=== PATIENT | female | born 1995 | race Caucasian/White ===

== ENCOUNTER 2017-01-30 06:16 | Emergency (ER) | payer BC ==
[2017-01-30] MEDS ORDERED: TETRACAINE 0.5% OPHTH SOLN 2 ML BOTTLE ONE ×2 (06:25→07:20)
[2017-01-30 06:40] VITALS: BP 119/67; PULSE 88; TEMP 97.5; BMI 25.8
--- NOTE | 2017-01-30 07:16 | PDOC ---
History of Present Illness - General History Source: Patient Exam Limitations: No Limitations - History of Present Illness Initial Comments: 01/30/17 07:35 The patient is a 21-year-old woman, accompanied by her mother, with no past medical history who presents to the emergency department via walk-in with complaints of bilateral eye pain. No trauma. Patient states that she had her contact lenses on all day. She proceeded to take them out at the end of the day yesterday. This morning, she woke up and was unable to open both of her eyes, secondary to pain. She states that this has happened to her in the past, but only on the right eye. She was evaluated by her Jetting Machine Operator, who stated, at the time, that she accidentally scratched her cornea. No visual changes, headache, lightheadedness, dizziness, nausea, vomiting, fever, chills. No other complaints. Allergies: No Known Drug Allergies Past Surgical History: None reported Social History: No tobacco, EtOH and recreational drug use. <Mia Oakley - Last Filed: 01/30/17 07:49> <Viry Parsons - Last Filed: 01/30/17 07:55> - General Chief Complaint: Eye Problem Stated Complaint: EYE PAIN Time Seen by Provider: 01/30/17 07:14 Past History <Mia Oakley - Last Filed: 01/30/17 07:49> - Psycho/Social/Smoking Cessation Hx Suicidal Ideation: No Smoking History: Never smoked Have you smoked in the past 12 months: No Information on smoking cessation initiated: No Hx Alcohol Use: No Drug/Substance Use Hx: No <Viry Parsons - Last Filed: 01/30/17 07:55> - Past Medical History Allergies/Adverse Reactions: Allergies Allergy/AdvReac Type Severity Reaction Status Date / Time No Known Allergies Allergy Verified 01/30/17 06:28 Home Medications: Ambulatory Orders Cyclopentolate 1% Eye Drops [Cyclogyl 1% Eye Drops -] 1 drop OU TID PRN #1 dropsbtl 01/30/17 Ibuprofen [Motrin -] 600 mg PO TID #21 tablet 01/30/17 Moxifloxacin HCl [Vigamox 0.5% Eye Drops -] 1 - 2 drop OU ASDIR #1 bottle Oxycodone HCl/Acetaminophen [Percocet 5-325 mg Tablet] 1 tab PO Q6H PRN #12 tablet MDD 4 tabs 01/30/17 Review of Systems - Review of Systems Able to Perform ROS?: Yes Comments:: 01/30/17 07:35 GENERAL/CONSTITUTIONAL: No fever or chills. No weakness. HEAD, EYES, EARS, NOSE AND THROAT: Yes: Bilateral Eye Pain. No change in vision. No ear pain or discharge. No sore throat. NEUROLOGIC: No headache, vertigo, loss of consciousness, or change in strength/ sensation. <Mia Oakley - Last Filed: 01/30/17 07:49> *Physical Exam - Vital Signs Last Vital Signs Temp Pulse Resp BP Pulse Ox 97.5 F L 88 20 119/67 99 01/30/17 06:28 01/30/17 06:28 01/30/17 06:28 01/30/17 06:28 01/30/17 06:28 - Physical Exam Comments: 01/30/17 07:35 GENERAL: Awake, alert, and fully oriented, in no acute distress HEAD: No signs of trauma EYES: PERRLA, EOMI, sclera anicteric, conjunctiva clear ENT: Auricles normal inspection, hearing grossly normal, nares patent, oropharynx clear without exudates. Moist mucosa NECK: Normal ROM, supple, no lymphadenopathy, JVD, or masses LUNGS: Breath sounds equal, clear to auscultation bilaterally. No wheezes, and no crackles HEART: Regular rate and rhythm, normal S1 and S2, no murmurs, rubs or gallops ABDOMEN: Soft, nontender, normoactive bowel sounds. No guarding, no rebound. No masses EXTREMITIES: Normal range of motion, no edema. No clubbing or cyanosis. No cords, erythema, or tenderness NEUROLOGICAL: Cranial nerves II through XII grossly intact. Normal speech, normal gait <Mia Oakley - Last Filed: 01/30/17 07:49> - Vital Signs Last Vital Signs Temp Pulse Resp BP Pulse Ox 97.5 F L 88 20 119/67 99 01/30/17 06:28 01/30/17 06:28 01/30/17 06:28 01/30/17 06:28 01/30/17 06:28 - Physical Exam Comments: GENERAL: Awake, alert, and fully oriented, in no acute distress HEAD: No signs of trauma EYES: Mild conjunctival injection B/L. PERRLA, EOMI, sclera anicteric, conjunctiva clear. Fluorescein stain with slight abnormal uptake to mid-cornea. ENT: Auricles normal inspection, hearing grossly normal, nares patent, oropharynx clear without exudates. Moist mucosa SKIN: Warm, Dry, normal turgor, no rashes or lesions noted. <Viry Parsons - Last Filed: 01/30/17 07:55> *DC/Admit/Observation/Transfer - Attestations Scribe Attestion: 01/30/17 07:35 Documentation prepared by Mia Oakley, acting as medical record clerk for Viry Parsons MD. <Mia Oakley - Last Filed: 01/30/17 07:49> - Discharge Dispostion Admit: No <Viry Parsons - Last Filed: 01/30/17 07:55> Diagnosis at time of Disposition: Eye pain Qualifiers: Laterality: bilateral Qualified Code(s): H57.13 - Ocular pain, bilateral - Discharge Dispostion Disposition: HOME Condition at time of disposition: Stable - Prescriptions Prescriptions: Cyclopentolate 1% Eye Drops [Cyclogyl 1% Eye Drops -] 1 drop OU TID PRN #1 dropsbtl PRN Reason: Pain Ibuprofen [Motrin -] 600 mg PO TID #21 tablet Oxycodone HCl/Acetaminophen [Percocet 5-325 mg Tablet] 1 tab PO Q6H PRN #12 tablet MDD 4 tabs PRN Reason: Severe Pain Moxifloxacin HCl [Vigamox 0.5% Eye Drops -] 1 - 2 drop OU ASDIR #1 bottle - Patient Instructions Printed Discharge Instructions: DI for Corneal Abrasion Additional Instructions: FOLLOW UP WITH YOUR CIRCLE EDGER TODAY. CALL FOR APPOINTMENT.
[2017-01-30] MEDS ORDERED: FLUORESCEIN NA 1 EA STRIP ONE ×2 (07:20→07:21)
[2017-01-30] MEDS ORDERED: IBUPROFEN 600 MG TABLET (FP) PO ONE ×2 (07:30→07:50)
[2017-01-30] MEDS ORDERED: OXYCODONE/APAP 5/325MG COMBO TABLET PO ONE (07:30)
[2017-01-30] MEDS ORDERED: OXYCODONE/APAP 5/325MG COMBO TABLET ONE (07:50)
== END 2017-01-30 08:15 | disposition home or self-care (01) ==
LOC: JER 06:16
DX: H57.13 Ocular pain, bilateral (principal)
CPT/HCPCS: 99281-25